=== PATIENT | female | born 1940 | race Caucasian/White ===

== ENCOUNTER → 2016-10-16 | Emergency (ER) | payer OTHER, MEDICARE ==
[~2016-10-16] MED LIST: LEVOFLOXACIN 250 MG TABLET (FP) ONE; LEVOFLOXACIN 250 MG TABLET (FP) PO ONE; SODIUM CHLORIDE 500 ML IV STA
[2016-10-16 20:56] VITALS: BP 133/55; PULSE 61; TEMP 98; BMI 29.2
--- NOTE | 2016-10-16 21:28 | PDOC ---
Attending Attestation - Resident Resident Name: Tea Geiger - ED Attending Attestation I have performed the following: I have examined & evaluated the patient, The case was reviewed & discussed with the resident, I agree w/resident's findings & plan - HPI HPI: 10/17/16 00:45 The patient is a 76 year old female, with a significant past medical history of diverticulitis, hypertension, paroxysmal AFIB/AFlutter, TIA, trigeminal neuralgia, who presents to the emergency department complaining of acute diarrhea beginning approx. four days ago. The patient reports the diarrhea has progressed worse over the past two days and describes the diarrhea as watery without blood. The patient states she is experiencing associated symptoms of abdominal pain, cramping and dehydration secondary to the diarrhea. The patient describes the abdominal pain and cramping as diffuse. The patient reports she ate an undercooked hamburger at a restaurant on 10/08/16. Patients son reports he experienced similar symptoms approx. one week ago. Patient denies nausea, vomiting, fever, chills. Patient denies melena, hematochezia. She denies recent chest pain or shortness of breath. She denies headache, dizziness or blurry vision.. Allergies: Vancomycin, Diclofenac, Gentamicin, Hydromorphone HCL, Penicillins, Sulfa (Sulfonamide Antibiotics) Past surgical history: Surgical Clips Abdomen, Appendectomy, Cholecystectomy, Removal Lipoma back area. Social history: Nonsmoker. Denies EtOH use and recreational drug use. Primary Care Physician: Dr. Cordoba - Physicial Exam PE: 10/17/16 00:46 GENERAL: Awake, alert, and fully oriented, in no acute distress HEAD: No signs of trauma EYES: PERRLA, EOMI, sclera anicteric, conjunctiva clear ENT: +Dry mucosa. Auricles normal inspection, hearing grossly normal, nares patent, oropharynx clear without exudates. NECK: Normal ROM, supple, no lymphadenopathy, JVD, or masses LUNGS: Breath sounds equal, clear to auscultation bilaterally. No wheezes, and no crackles HEART: Regular rate and rhythm, normal S1 and S2, no murmurs, rubs or gallops ABDOMEN: +Mild RLQ Tenderness. Soft, normoactive bowel sounds. No guarding, no rebound. No masses EXTREMITIES: Normal range of motion, no edema. No clubbing or cyanosis. No cords, erythema, or tenderness NEUROLOGICAL: Cranial nerves II through XII grossly intact. Normal speech, normal gait SKIN: Warm, Dry, normal turgor, no rashes or lesions noted. - Medical Decision Making 10/17/16 00:55 Documentation prepared by Bridger Lopez, acting as medical staffing coordinator for Coty Hardin MD. <Bridger Lopez - Last Filed: 10/17/16 00:55> - Resident Resident Name: Jerel Harvey - ED Attending Attestation I have performed the following: I have examined & evaluated the patient, The case was reviewed & discussed with the resident, I agree w/resident's findings & plan, Exceptions are as noted - Medical Decision Making Prelim reading of the CT was negative for colitis. Patient found to have a UTI, however. In light of multiple drug allergies, opted for levaquin, as it had the lowest likelihood of an interaction with other allergies. UCx pending. She has previously followed up with Dr. Garcia, will f/u outpatient. <Coty Hardin - Last Filed: 10/17/16 02:21>
--- NOTE | 2016-10-16 21:28 | PDOC ---
History of Present Illness - History of Present Illness Initial Comments: 10/16/16 22:04 76F w/ extensive medical history including diverticulitis, appendectomy, and cholecystectomy presenting with acute diarrhea. Pt reports that her diarrhea started over a week ago, was watery without blood, significantly malodorous, and was accompanied by cramping and abdominal pain. Over the last few days, these symptoms have worsened. She denies nausea, emesis, fevers, chills, recent antibiotic use, and recent travel. She states that her family member had similar symptoms before her but they resolved within a few days. She states that she ate a raw hamburger at a restaurant on 10/08/16. She took pepcid to improve her symptoms which did not help. She also endorses some dysuria and frequency a few days ago which she says has resolved. 10/16/16 22:38 <Jerel Harvey - Last Filed: 10/16/16 22:42> <Coty Hardin - Last Filed: 10/17/16 01:23> - General Chief Complaint: Pain Stated Complaint: LOWER ABD PAIN Time Seen by Provider: 10/16/16 21:21 Past History - Past Medical History Anemia: No Asthma: No Cancer: Yes Cardiac Disorders: Yes (PAROXYSMAL ATRIAL FIBRILLATION) CVA: Yes (SEVERAL TIA'S) COPD: Yes (BRONCHITIS,PNEUMONIA) CHF: No Dementia: No Diabetes: No GI Disorders: Yes (HIATAL HERNIA,REFLUX,DIVERTICULOSIS) Disorders: No HTN: Yes Hypercholesterolemia: Yes Liver Disease: No Suicide Attempt (Hx): No Seizures: No Thyroid Disease: Yes (DUNG THYROIDITIS) Comment:: 10/16/16 22:33 PMH: HTN, paroxysmal a-fib/flutter, TIA, cervical and lumbar stenosis, trigeminal neuralgia, osteoarthritis, dung's thyroiditis, diverticulitis, hiatal hernia PSH: appendectomy, cholecystectomy, hysterectomy, breast surgery for benign cysts meds: synthoid, atenolol, aspirin, pepcid Allergies: vancomycin, diclofenac, gentamicin, dilaudid, PCN, sulfa drugs, epinephrine, latex Social Hx: 60 pack year smoking hx, quit 30 years ago, denies alcohol and drugs - Surgical History Abdominal Surgery: Yes (SURGICAL CLIPS ABDOMEN) Appendectomy: Yes Cardiac Surgery: No Cholecystectomy: Yes Lung Surgery: No Neurologic Surgery: No Orthopedic Surgery: Yes (REMOVAL LIPOMA BACK AREA) - Immunization History Immunization Up to Date: No - Psycho/Social/Smoking Cessation Hx Anxiety: Yes Suicidal Ideation: No Smoking Status: Yes Smoking History: Never smoked Have you smoked in the past 12 months: No Number of Cigarettes Smoked Daily: 0 If you are a former smoker, when did you quit?: 1987 Information on smoking cessation initiated: No 'Breaking Loose' booklet given: 11/07/14 Hx Alcohol Use: No Drug/Substance Use Hx: No Substance Use Type: None Hx Substance Use Treatment: No <Jerel Harvey - Last Filed: 10/16/16 22:42> <Coty Hardin - Last Filed: 10/17/16 01:23> - Past Medical History Allergies/Adverse Reactions: Allergies Allergy/AdvReac Type Severity Reaction Status Date / Time vancomycin Allergy Severe anaphylaxis Verified 10/16/16 20:52 diclofenac [Diclofenac] Allergy Mild Hives Verified 10/16/16 20:52 gentamicin [Gentamicin] Allergy Mild Rash Verified 10/16/16 20:52 hydromorphone HCl Allergy Mild Hives Verified 10/16/16 20:52 [From Dilaudid] Penicillins Allergy Mild Rash Verified 10/16/16 20:52 Sulfa (Sulfonamide Allergy Verified 10/16/16 20:52 Antibiotics) Home Medications: Ambulatory Orders Aspirin Coated [Ecotrin -] 325 mg PO DAILY 01/04/12 Levothyroxine [Synthroid -] 50 mcg PO DAILY 01/04/12 Levothyroxine [Synthroid -] 75 mcg PO DAILY 01/04/12 Multivitamin [Multivitamins] 1 each PO DAILY 04/12/12 Atenolol [Tenormin -] 25 mg PO DAILY #0 04/13/12 Acetaminophen [Tylenol .Extra-Strength -] 1 tab PO PRN PRN 06/05/14 Famotidine [Pepcid] 20 mg PO PRN PRN 11/13/15 Docusate Sodium [Colace -] 100 mg PO BID #60 capsule 01/15/16 Pantoprazole Sodium [Protonix] 40 mg PO DAILY #30 tablet. 01/15/16 Sodium Chloride Nasal [place] [[place] Nasal [place] -] 1 spray PRN 01/15/16 Review of Systems - Review of Systems Comments:: 10/16/16 22:36 ENERAL: No fever, chills, night sweats, or weakness. HEAD, EYES, EARS, NOSE AND THROAT: No change in vision, ear pain, or sore throat CARDIOVASCULAR: No chest pain or palpitations RESPIRATORY: No cough, wheezing, or hemoptysis. GASTROINTESTINAL: No nausea, vomiting, + diarrhea, no constipation, or blood in the stool. GENITOURINARY: + dysuria, + frequency MUSCULOSKELETAL: No joint or muscle swelling or pain. SKIN: No rashes or pruritis ENDOCRINE: No increased thirst. No abnormal weight change NEUROLOGIC: No headache, dizziness, loss of consciousness, or change in strength /sensation. <Jerel Harvey - Last Filed: 10/16/16 22:42> *Physical Exam - Vital Signs Last Vital Signs Temp Pulse Resp BP Pulse Ox 98.0 F 61 20 133/55 98 10/16/16 20:52 10/16/16 20:52 10/16/16 20:52 10/16/16 20:52 10/16/16 20:52 - Physical Exam Comments: 10/16/16 22:37 GENERAL: Awake, alert, and fully oriented, in mild acute distress HEAD: normocephalic, atraumatic HEENT: PERRLA, EOMI NECK: Normal ROM, supple, no lymphadenopathy, JVD, or masses HEART: irregularly irregular, no murmurs, rubs or gallops, peripheral pulses normal and equal bilaterally. LUNGS: CTAB, no wheezing, no rales ABDOMEN: Soft, nontender, nondistended, normoactive bowel sounds. No guarding, no rebound. No masses EXTREMITIES: Normal range of motion, 1+ pitting edema b/l SKIN: Warm, dry, no rashes or lesions noted. NEUROLOGICAL: Cranial nerves II through XII grossly intact. Normal speech, normal gait, no focal sensorimotor deficits 10/16/16 22:42 10/16/16 22:43 <Jerel Harvey - Last Filed: 10/16/16 22:42> - Vital Signs Last Vital Signs Temp Pulse Resp BP Pulse Ox 98.0 F 61 20 133/55 98 10/16/16 20:52 10/16/16 20:52 10/16/16 20:52 10/16/16 20:52 10/16/16 20:52 <Coty Hardin - Last Filed: 10/17/16 01:23> ED Treatment Course - LABORATORY CBC & Chemistry Diagram: 10/16/16 22:00 10/16/16 22:00 <Jerel Harvey - Last Filed: 10/16/16 22:42> - LABORATORY CBC & Chemistry Diagram: 10/16/16 22:00 10/16/16 22:00 - ADDITIONAL ORDERS Additional order review: Laboratory Results 10/16/16 10/16/16 22:33 22:00 Sodium 142 Potassium 3.9 Chloride 108 H Carbon Dioxide 27 Anion Gap 7 L BUN 21 H D Creatinine 0.6 Creat Clearance w eGFR > 60 Random Glucose 90 Calcium 8.7 Total Bilirubin 0.3 D AST 21 D ALT 26 Alkaline Phosphatase 69 Total Protein 6.4 Albumin 3.5 Urine Color Brown Urine Appearance Clear Urine pH 6.0 Urine Protein Trace H Urine Glucose (UA) Negative Urine Ketones Negative Urine Blood 2+ H Urine Nitrite Positive Urine Bilirubin Negative Urine Urobilinogen 0.2 Ur Leukocyte Esterase 3+ H D Urine RBC 8 Urine WBC 1093 Ur Epithelial Cells Rare Urine Bacteria Rare Urine Mucus Rare 10/16/16 22:00 RBC 4.39 MCV 89.4 MCHC 33.8 RDW 15.1 MPV 10.5 Neutrophils % 52.6 Lymphocytes % 32.4 D Monocytes % 11.9 H Eosinophils % 2.2 Basophils % 0.9 - Medications Given in the ED: ED Medications Discontinued Medications Generic Name Dose Route Start Last Admin Trade Name Freq PRN Reason Stop Dose Admin Sodium Chloride 500 mls @ 500 mls/hr 10/16/16 21:57 10/16/16 22:34 Normal Saline - IV 10/16/16 22:56 500 mls/hr ASDIR STA Administration <Coty Hardin - Last Filed: 10/17/16 01:23> Medical Decision Making - Medical Decision Making 10/16/16 22:38 76F w/ extensive medical history including diverticulitis, appendectomy, and cholecystectomy presenting with acute watery, malodorous diarrhea. Differential includes c. diff colitis, diverticulitis, UTI. -CBC: -CMP: -UA -stool cx: -stool c. diff toxin -stool wbc -stool O&P: -CT abdomen/pelvis: Gave 1/2L bolus of NS. <Jerel Harvey - Last Filed: 10/16/16 22:42> *DC/Admit/Observation/Transfer <Jerel Harvey - Last Filed: 10/16/16 22:42> - Discharge Dispostion Admit: No <Coty Hardin - Last Filed: 10/17/16 01:23> Diagnosis at time of Disposition: UTI (urinary tract infection) Qualifiers: Urinary tract infection type: acute cystitis Hematuria presence: without hematuria Qualified Code(s): N30.00 - Acute cystitis without hematuria - Discharge Dispostion Disposition: HOME Condition at time of disposition: Stable - Referrals Referrals: Ray Cordoba MD [Primary Care Provider] -
[2016-10-16 22:07] LABS: BASOPHIL 0.9 % (0-2.0); EOSINOPHIL 2.2 % (0-4.5); MCH 30.2 pg (25.7-33.7); MCHC 33.8 g/dl (32.0-36.0); MEAN CELL VOLUME 89.4 fl (80-96); MEAN PLT VOLUME 10.5 fl (7.5-11.1); NEUTROPHILS 52.6 % (42.8-82.8); PLATELET COUNT 187 K/MM3 (134-434); RDW 15.1 % (11.6-15.6); WHITE BLOOD COUNT 7.1 K/mm3 (4.0-10.0)
[2016-10-16 22:36] LABS: URINE APPEARANCE CLEAR; URINE BILIRUBIN NEGATIVE (NEGATIVE); URINE BLOOD 2+ (NEGATIVE); URINE COLOR BROWN; URINE GLUCOSE (UA) NEGATIVE (NEGATIVE); URINE KETONE NEGATIVE (NEGATIVE); URINE PROTEIN TRACE (NEGATIVE); URINE UROBILINOGEN 0.2 mg/dL (0.2-1.0)
[2016-10-16 22:39] LABS: ALBUMIN 3.5 g/dl (3.4-5.0); ALK PHOS 69 U/L (45-117); ANION GAP 7 (8-16); BILIRUBIN,TOTAL 0.3 mg/dL (0.2-1.0); CALCIUM 8.7 mg/dL (8.5-10.1); CO2 27 mmol/L (21-32); CREATININE 0.6 mg/dL (0.55-1.02); GLUCOSE,RANDOM 90 mg/dL (74-106); SGPT/ALT 26 U/L (12-78); TOT PROT 6.4 g/dl (6.4-8.2)
[2016-10-16 22:42] LABS: SGOT/AST 21 U/L (15-37)
[2016-10-16 22:49] LABS: URINE LEUK ESTERASE 3+ (NEGATIVE); URINE NITRITE POSITIVE (NEGATIVE)
[2016-10-16 22:50] LABS: URINE BACTERIA RARE /hpf (NONE SEEN); URINE MUCUS RARE; URINE RBC 8 /hpf (0-3); URINE WBC 1093 /hpf (3-5)
== END | disposition home or self-care (01) ==
LOC: JER 20:31
PROC: 3E0337Z Introduction of Electrolytic and Water Balance Substance into Peripheral Vein, Percutaneous Approach (ICD-10-PCS; principal; 2016-10-16)
DX: N30.00 Acute cystitis without hematuria (principal); I10 Essential (primary) hypertension; E06.3 Autoimmune thyroiditis; E78.00 Pure hypercholesterolemia, unspecified; J44.9 Chronic obstructive pulmonary disease, unspecified; Z86.73 Personal history of transient ischemic attack (TIA), and cerebral infarction without residual deficits; I48.91 Unspecified atrial fibrillation; K21.9 Gastro-esophageal reflux disease without esophagitis
CPT/HCPCS: 36415; 74176-TC; 80053; 81003; 81015; 85025; 96360; 99283-25

== ENCOUNTER 2016-10-17 11:57 | Emergency (ER) | payer OTHER, MEDICARE ==
[2016-10-17 12:03] VITALS: TEMP 98
[2016-10-17 12:57] LABS: BASOPHIL 0.8 % (0-2.0); EOSINOPHIL 1.3 % (0-4.5); MCH 29.6 pg (25.7-33.7); MCHC 32.8 g/dl (32.0-36.0); MEAN CELL VOLUME 90.1 fl (80-96); MEAN PLT VOLUME 10.3 fl (7.5-11.1); NEUTROPHILS 60.6 % (42.8-82.8); PLATELET COUNT 208 K/MM3 (134-434)
[2016-10-17 13:06] LABS: URINE APPEARANCE CLEAR; URINE BILIRUBIN NEGATIVE (NEGATIVE); URINE BLOOD NEGATIVE (NEGATIVE); URINE COLOR LT. YELLOW; URINE GLUCOSE (UA) NEGATIVE (NEGATIVE); URINE KETONE NEGATIVE (NEGATIVE); URINE NITRITE NEGATIVE (NEGATIVE); URINE PROTEIN NEGATIVE (NEGATIVE); URINE UROBILINOGEN 0.2 mg/dL (0.2-1.0)
[2016-10-17 13:19] LABS: URINE LEUK ESTERASE 1+ (NEGATIVE)
--- NOTE | 2016-10-17 13:21 | PDOC ---
History of Present Illness - General Chief Complaint: Urinary Problem Stated Complaint: ALLERGIC REACTION Time Seen by Provider: 10/17/16 12:34 History Source: Patient Exam Limitations: No Limitations - History of Present Illness Initial Comments: 10/17/16 13:20 CHIEF COMPLAINT: UTI HISTORY OF PRESENT ILLNESS: This is a 76 year old female with a history of bladder prolapse and frequent UTIs, paroxysmal atrial fibrillation (not on AC), HTN, GERD, diverticulitis, appendectomy, and cholecystectomy seen last night in the ED for diarrhea and diagnosed with UTI. She has multiple drug allergies and was started on Levaquin. She returns today with abdominal cramping and lightheadedness, which she thinks may be attributable to Levaquin. She has mild left flank pain. She denies fevers/chills, nausea/vomiting, or any other symptoms. V/s on arrival are unremarkable. PCP is Dr. Cordoba. REVIEW OF SYSTEMS: GENERAL/CONSTITUTIONAL: No fever or chills. No weakness. No weight change. HEAD, EYES, EARS, NOSE AND THROAT: No change in vision. No ear pain or discharge. No sore throat. CARDIOVASCULAR: No chest pain or palpitations. RESPIRATORY: No cough, wheezing, or shortness of breath. GASTROINTESTINAL: No nausea, vomiting, diarrhea or constipation. GENITOURINARY: No dysuria, frequency, or change in urination. MUSCULOSKELETAL: No joint or muscle swelling or pain. No neck or back pain. SKIN: No rash or easy bruising. NEUROLOGIC: No headache, vertigo, loss of consciousness, or loss of sensation. PSYCHIATRIC: No depression or anxiety. ENDOCRINE: No increased thirst. No abnormal weight change. HEMATOLOGIC/LYMPHATIC: No anemia, easy bleeding, or history of blood clots. ALLERGIC/IMMUNOLOGIC: No hives or skin allergy. No latex allergy. PHYSICAL EXAM: GENERAL: The patient is awake, alert, and fully oriented, in no acute distress. HEAD: Normal with no signs of trauma. ENT: Pupils equal, round and reactive to light, extraocular movements intact, sclera anicteric, conjunctiva clear. Neck supple. LUNGS: Clear to auscultation bilaterally. Normal excursion. No respiratory distress or use of accessory muscles. CV: RRR, S1/S2, no MRG. Cap refill < 2 sec. ABDOMEN: Soft, non-distended, non-tender. EXTREMITIES: Normal range of motion, no edema. NEUROLOGICAL: Normal speech, normal gait. CN II-XII grossly intact. PSYCH: Normal mood, normal affect. SKIN: Warm, dry, normal turgor, no rashes or lesions noted. Past History - Past Medical History Allergies/Adverse Reactions: Allergies Allergy/AdvReac Type Severity Reaction Status Date / Time vancomycin Allergy Severe anaphylaxis Verified 10/17/16 12:04 diclofenac [Diclofenac] Allergy Mild Hives Verified 10/17/16 12:04 gentamicin [Gentamicin] Allergy Mild Rash Verified 10/17/16 12:04 hydromorphone HCl Allergy Mild Hives Verified 10/17/16 12:04 [From Dilaudid] Penicillins Allergy Mild Rash Verified 10/17/16 12:04 cephalexin monohydrate Allergy Verified 10/17/16 15:21 [From Keflex] nitrofurantoin Allergy Verified 10/17/16 15:21 [From Macrobid] nitrofurantoin Allergy Verified 10/17/16 15:21 macrocrystalline [From Macrobid] Sulfa (Sulfonamide Allergy Verified 10/17/16 12:04 Antibiotics) Home Medications: Ambulatory Orders Aspirin Coated [Ecotrin -] 325 mg PO DAILY 01/04/12 Levothyroxine [Synthroid -] 50 mcg PO SUTHFRSA 01/04/12 Levothyroxine [Synthroid -] 75 mcg PO MOTUWE 01/04/12 Multivitamin [Multivitamins] 1 each PO DAILY 04/12/12 Atenolol [Tenormin -] 25 mg PO DAILY #0 04/13/12 Acetaminophen [Tylenol .Extra-Strength -] 1 tab PO PRN PRN 06/05/14 Famotidine [Pepcid] 20 mg PO PRN PRN 11/13/15 Sodium Chloride Nasal [place] [[place] Nasal [place] -] 1 spray SPIN DAILY PRN 01/15/16 Levofloxacin [Levaquin -] 250 mg PO DAILY #2 tablet 10/17/16 Anemia: No Asthma: No Cancer: Yes Cardiac Disorders: Yes (PAROXYSMAL ATRIAL FIBRILLATION) CVA: Yes (SEVERAL TIA'S) COPD: Yes (BRONCHITIS,PNEUMONIA) CHF: No Dementia: No Diabetes: No GI Disorders: Yes (HIATAL HERNIA,REFLUX,DIVERTICULOSIS) Disorders: No HTN: Yes Hypercholesterolemia: Yes Liver Disease: No Suicide Attempt (Hx): No Seizures: No Thyroid Disease: Yes (DOROTEO THYROIDITIS) - Surgical History Abdominal Surgery: Yes (SURGICAL CLIPS ABDOMEN) Appendectomy: Yes Cardiac Surgery: No Cholecystectomy: Yes Lung Surgery: No Neurologic Surgery: No Orthopedic Surgery: Yes (REMOVAL LIPOMA BACK AREA) - Immunization History Immunization Up to Date: No - Psycho/Social/Smoking Cessation Hx Anxiety: Yes Suicidal Ideation: No Smoking Status: Yes Smoking History: Former smoker Have you smoked in the past 12 months: No Number of Cigarettes Smoked Daily: 0 If you are a former smoker, when did you quit?: 1987 Information on smoking cessation initiated: No 'Breaking Loose' booklet given: 11/07/14 Hx Alcohol Use: No Drug/Substance Use Hx: No Substance Use Type: None Hx Substance Use Treatment: No *Physical Exam - Vital Signs Last Vital Signs Temp Pulse Resp BP Pulse Ox 98.0 F 56 L 16 123/74 100 10/17/16 12:00 10/17/16 12:00 10/17/16 12:00 10/17/16 12:00 10/17/16 12:00 Heart Score/ECG Review - ECG Intrepretation Comment:: 10/17/16 15:06 Sinus rhythm at 67 bpm with PACs ED Treatment Course - LABORATORY CBC & Chemistry Diagram: 10/17/16 12:48 10/17/16 12:48 - ADDITIONAL ORDERS Additional order review: Laboratory Results 10/17/16 12:48 Urine Color Lt. yellow Urine Appearance Clear Urine pH 7.0 Urine Protein Negative Urine Glucose (UA) Negative Urine Ketones Negative Urine Blood Negative Urine Nitrite Negative Urine Bilirubin Negative Urine Urobilinogen 0.2 Ur Leukocyte Esterase 1+ H D 10/17/16 12:48 RBC 4.82 MCV 90.1 MCHC 32.8 RDW 15.0 MPV 10.3 Neutrophils % 60.6 Lymphocytes % 25.8 D Monocytes % 11.5 H Eosinophils % 1.3 Basophils % 0.8 - RADIOLOGY Radiology Studies Ordered: Category Date Time Status CHEST X-RAY PORTABLE* [RAD] Stat Radiology 10/17/16 12:35 Taken Medical Decision Making - Medical Decision Making 10/17/16 15:20 A/P: 76 year old female with UTI and many drug allergies. Review of record indicates administration of multiple doses of Levaquin during an admission for diverticulitis; doubt true allergy. Dose of Levaquin given IVPB here without reaction. Culture from visit to urologist on Monday requested and faxed - E coli (no sensitivities reported). -Repeat urine culture -Basic labs - normal WBC, creatinine -Discussed with PCP Dr. Cordoba- recommends discharge with office followup -Return precautions reviewed with the patient *DC/Admit/Observation/Transfer Diagnosis at time of Disposition: UTI (urinary tract infection) Qualifiers: Urinary tract infection type: acute cystitis Hematuria presence: without hematuria Qualified Code(s): N30.00 - Acute cystitis without hematuria - Discharge Dispostion Admit: No - Prescriptions Prescriptions: Levofloxacin [Levaquin -] 250 mg PO DAILY #2 tablet - Referrals Referrals: Ray Cordoba MD [Primary Care Provider] - 3 days - Patient Instructions Printed Discharge Instructions: DI for Urinary Tract Infection (UTI)
[2016-10-17 13:22] LABS: ALBUMIN 3.7 g/dl (3.4-5.0); ANION GAP 9 (8-16); CALCIUM 9.2 mg/dL (8.5-10.1); CO2 24 mmol/L (21-32); GLUCOSE,RANDOM 89 mg/dL (74-106)
[2016-10-17 13:27] LABS: URINE RBC <1 /hpf (0-3); URINE WBC 21 /hpf (3-5)
[2016-10-17] MEDS ORDERED: LEVOFLOXACIN 500 MG IVPB 100 ML IVPB ONE ×2 (14:14→14:33)
[2016-10-17 14:26] LABS: ALK PHOS 72 U/L (45-117); BILIRUBIN,TOTAL 0.7 mg/dL (0.2-1.0); CREATININE 0.6 mg/dL (0.55-1.02); SGPT/ALT 32 U/L (12-78)
[2016-10-17 14:31] LABS: SGOT/AST 38 U/L (15-37)
[2016-10-17 15:37] VITALS: BP 122/63; PULSE 59
--- NOTE | 2016-10-19 16:48 | EKG ---
Test Reason : Blood Pressure : / mmHG Vent. Rate : 067 BPM Atrial Rate : 067 BPM P-R Int : 000 ms QRS Dur : 084 ms QT Int : 414 ms P-R-T Axes : 031 -03 002 degrees QTc Int : 437 ms SINUS RHYTHM WITH PREMATURE ATRIAL COMPLEXES IN A PATTERN OF BIGEMINY OTHERWISE NORMAL ECG WHEN COMPARED WITH ECG OF 14-JAN-2016 11:05, PREMATURE ATRIAL COMPLEXES ARE NOW PRESENT Confirmed by DARIEL PINEDA MD ([id number]) on 10/19/2016 4:47:51 PM Referred By: Confirmed By:DARIEL PINEDA MD
== END 2016-10-17 15:37 | disposition home or self-care (01) ==
LOC: JER 11:57
DX: N30.00 Acute cystitis without hematuria (principal); I48.91 Unspecified atrial fibrillation; I10 Essential (primary) hypertension; K21.9 Gastro-esophageal reflux disease without esophagitis
CPT/HCPCS: 36415; 71010-TC; 80053; 81003; 81015; 85025; 87086; 93005; 93010; 99283-25

== ENCOUNTER 2016-10-25 20:33 | Emergency (ER) | payer OTHER, MEDICARE ==
[2016-10-25 21:08] VITALS: BP 133/72; PULSE 56; TEMP 97.9; BMI 28.3
[2016-10-25] MEDS ORDERED: SODIUM CHLORIDE 500 ML IV STA (22:50)
[2016-10-26 00:23] LABS: BASOPHIL 0.5 % (0-2.0); EOSINOPHIL 1.1 % (0-4.5); MCH 29.3 pg (25.7-33.7); MCHC 32.4 g/dl (32.0-36.0); MEAN CELL VOLUME 90.3 fl (80-96); MEAN PLT VOLUME 10.5 fl (7.5-11.1); NEUTROPHILS 66.9 % (42.8-82.8); PLATELET COUNT 204 K/MM3 (134-434); RDW 15.1 % (11.6-15.6); WHITE BLOOD COUNT 12.6 K/mm3 (4.0-10.0)
[2016-10-26 00:45] LABS: ALBUMIN 3.9 g/dl (3.4-5.0); ALK PHOS 71 U/L (45-117); ANION GAP 12 (8-16); BILIRUBIN,TOTAL 0.6 mg/dL (0.2-1.0); CO2 22 mmol/L (21-32); CREATININE 0.6 mg/dL (0.55-1.02); GLUCOSE,RANDOM 85 mg/dL (74-106); SGPT/ALT 27 U/L (12-78); TOT PROT 6.9 g/dl (6.4-8.2)
[2016-10-26 00:53] LABS: SGOT/AST 36 U/L (15-37)
== END 2016-10-26 04:00 | disposition home or self-care (01) ==
LOC: JER 20:33
PROC: 3E0337Z Introduction of Electrolytic and Water Balance Substance into Peripheral Vein, Percutaneous Approach (ICD-10-PCS; principal; 2016-10-25)
DX: K57.90 Diverticulosis of intestine, part unspecified, without perforation or abscess without bleeding (principal); I48.0 Paroxysmal atrial fibrillation; J44.9 Chronic obstructive pulmonary disease, unspecified; I10 Essential (primary) hypertension; E78.00 Pure hypercholesterolemia, unspecified; Z86.73 Personal history of transient ischemic attack (TIA), and cerebral infarction without residual deficits
CPT/HCPCS: 36415; 74177-TC; 80053; 85025; 99282-25

== ENCOUNTER 2018-08-07 14:15 | Emergency (ER) | payer OTHER, MEDICARE ==
[2018-08-07 14:38] VITALS: TEMP 98.2; BMI 28.3
--- NOTE | 2018-08-07 14:41 | PDOC ---
Rapid Medical Evaluation Chief Complaint: Pain, Acute Time Seen by Provider: 08/07/18 14:39 Medical Evaluation: Allergies Allergy/AdvReac Type Severity Reaction Status Date / Time vancomycin Allergy Severe anaphylaxis Verified 08/07/18 14:36 diclofenac [Diclofenac] Allergy Mild Hives Verified 08/07/18 14:36 gentamicin [Gentamicin] Allergy Mild Rash Verified 08/07/18 14:36 hydromorphone HCl Allergy Mild Hives Verified 08/07/18 14:36 [From Dilaudid] Penicillins Allergy Mild Rash Verified 08/07/18 14:36 cephalexin monohydrate Allergy Verified 08/07/18 14:36 [From Keflex] nitrofurantoin Allergy Verified 08/07/18 14:36 [From Macrobid] nitrofurantoin Allergy Verified 08/07/18 14:36 macrocrystalline [From Macrobid] Sulfa (Sulfonamide Allergy Verified 08/07/18 14:36 Antibiotics) Vital Signs Temp Pulse Resp BP Pulse Ox 98.2 F 68 18 129/76 98 08/07/18 14:36 08/07/18 14:36 08/07/18 14:36 08/07/18 14:36 08/07/18 14:36 08/07/18 14:40 The patient c/o: gen abd ain, nausea, constipation mixed w/ diarrhea, hx diverticulitis, no fever Patient on brief exam: mild gen abd tenderness, vss Patient ordered for: labs, urine, will allow provider to decide imaging Patient to proceed to the ED Discharge Disposition - Diagnosis Abdominal pain - Referrals - Patient Instructions - Post Discharge Activity
--- NOTE | 2018-08-07 14:51 | PDOC ---
History of Present Illness - General Chief Complaint: Pain, Acute Stated Complaint: STOMACH PAIN\\NAUSEA\\LIGHTHEADED Time Seen by Provider: 08/07/18 14:39 - History of Present Illness Initial Comments: 08/07/18 14:49 The patient is an 78 year old female with a PMH of diverticulitis, Paroxysmal AFib (not on A/C), Hypothyroidism, GERD presents to our ED c/o 2 week h/o abdominal pain. Pain is "twisting" intermittent, worse post prandial, associated with nausea not vomiting. Last BM was earlier today prior to presentation and was soft. States she had some diarrhea initially when the pain started and then had 2-3 days of constipation. Tolerating PO intake, but notes limited appetite 2/2 to her symptoms. Has previously scheduled appointment with GI in two weeks. Allergy: Dilaudid, Vancoymcin, Gentamicin Surgical: appendectomy, cholecystectomy, hysterectomy PMD: Dr. [place] Machine Wood Sander: Dr. Tobin Past History - Past Medical History Allergies/Adverse Reactions: Allergies Allergy/AdvReac Type Severity Reaction Status Date / Time vancomycin Allergy Severe anaphylaxis Verified 08/07/18 14:36 diclofenac [Diclofenac] Allergy Mild Hives Verified 08/07/18 14:36 gentamicin [Gentamicin] Allergy Mild Rash Verified 08/07/18 14:36 hydromorphone HCl Allergy Mild Hives Verified 08/07/18 14:36 [From Dilaudid] Penicillins Allergy Mild Rash Verified 08/07/18 14:36 cephalexin monohydrate Allergy Verified 08/07/18 14:36 [From Keflex] nitrofurantoin Allergy Verified 08/07/18 14:36 [From Macrobid] nitrofurantoin Allergy Verified 08/07/18 14:36 macrocrystalline [From Macrobid] Sulfa (Sulfonamide Allergy Verified 08/07/18 14:36 Antibiotics) Home Medications: Ambulatory Orders Aspirin Coated [Ecotrin -] 325 mg PO DAILY 01/04/12 Levothyroxine [Synthroid -] 50 mcg PO SUTHFRSA 01/04/12 Levothyroxine [Synthroid -] 75 mcg PO MOTUWE 01/04/12 Multivitamin [Multivitamins] 1 each PO DAILY 04/12/12 Atenolol [Tenormin -] 25 mg PO DAILY #0 04/13/12 Acetaminophen [Tylenol .Extra-Strength -] 1 tab PO PRN PRN 06/05/14 Famotidine [Pepcid] 20 mg PO PRN PRN 11/13/15 Sodium Chloride Nasal [place] [[place] Nasal [place] -] 1 spray SPIN DAILY PRN 01/15/16 levoFLOXacin [Levaquin -] 250 mg PO DAILY #2 tablet 10/17/16 Anemia: No Asthma: No Cancer: Yes Cardiac Disorders: Yes (PAROXYSMAL ATRIAL FIBRILLATION) CVA: Yes (SEVERAL TIA'S) COPD: Yes (BRONCHITIS,PNEUMONIA) CHF: No Dementia: No Diabetes: No GI Disorders: Yes (HIATAL HERNIA,REFLUX,DIVERTICULOSIS) Disorders: No HTN: Yes Hypercholesterolemia: Yes Liver Disease: No Seizures: No Thyroid Disease: Yes (DOROTEO THYROIDITIS) - Surgical History Abdominal Surgery: Yes (SURGICAL CLIPS ABDOMEN) Appendectomy: Yes Cardiac Surgery: No Cholecystectomy: Yes Lung Surgery: No Neurologic Surgery: No Orthopedic Surgery: Yes (REMOVAL LIPOMA BACK AREA) - Immunization History Immunization Up to Date: No - Suicide/Smoking/Psychosocial Hx Smoking Status: Yes Smoking History: Former smoker Have you smoked in the past 12 months: No Number of Cigarettes Smoked Daily: 0 If you are a former smoker, when did you quit?: 1987 Information on smoking cessation initiated: No 'Breaking Loose' booklet given: 11/07/14 Hx Alcohol Use: No Drug/Substance Use Hx: No Substance Use Type: None Hx Substance Use Treatment: No Review of Systems - Review of Systems Constitutional: No: Chills, Fever HEENTM: No: Blurred Vision, Recent change in vision Respiratory: No: Cough, Shortness of Breath Cardiac (ROS): No: Chest Pain, Lightheadedness, Palpitations *Physical Exam - Vital Signs Last Vital Signs Temp Pulse Resp BP Pulse Ox 98.2 F 68 18 129/76 98 08/07/18 14:36 08/07/18 14:36 08/07/18 14:36 08/07/18 14:36 08/07/18 14:36 - Physical Exam General Appearance: Yes: Nourished, Appropriately Dressed HEENT: positive: Normal Voice, Hearing Grossly Normal Neck: positive: Trachea midline, Supple Respiratory/Chest: positive: Lungs Clear, Normal Breath Sounds Cardiovascular: positive: Regular Rate, S1, S2 Vascular Pulses: Dorsalis-Pedis (R): 2+, Doralis-Pedis (L): 2+ Gastrointestinal/Abdominal: positive: Other (soft, (+) bowel sounds, mild LLQ TTP w/ some guarding, no hernia) Musculoskeletal: negative: CVA Tenderness (R), CVA Tenderness (L) Extremity: positive: Normal Capillary Refill, Normal Inspection Integumentary: positive: Normal Color, Dry, Warm Neurologic: positive: bench assembler battery II-XII NML intact, Fully Oriented, Alert ED Treatment Course - LABORATORY CBC & Chemistry Diagram: 08/07/18 15:28 08/07/18 15:28 Medical Decision Making - Medical Decision Making 08/07/18 15:45 78 year old female with 2 week h/o abdominal pain. VS unremarkable. PE shows tender abdomen with peritoneal signs. Frontal diagnosis: colitis, diverticulitis, gastritis, gastroenteritis, cystitis/pyelonephritis pancreatitis. Less likely acute abdomen including mesenteric ischemia given patient's clinical presentation and physical exam. PLAN: CTAP, basic labs, lipase. IV hydration 08/07/18 16:07 No leukocytosis CMP unremarkable UA clean 08/07/18 19:59 CTAP shows no diverticulitis, no colitis, Patient reassessed, son @ bedside, symptomatically improved, ambulatory. Will discharge home with instruction to keep previously scheduled GI appointment , return precautions. I discussed the physical exam findings, ancillary test results and final diagnoses with the patient. I answered all of the patient's questions. The patient was satisfied with the care received and felt comfortable with the discharge plan and treatment plan. The patient will return to the Emergency Department with any new, persistent or worsening symptoms. *DC/Admit/Observation/Transfer Diagnosis at time of Disposition: Abdominal pain - Discharge Dispostion Disposition: HOME Condition at time of disposition: Good Decision to Admit order: No - Referrals - Patient Instructions Printed Discharge Instructions: [place] Diet, DI for Gastritis Additional Instructions: You were evaluated today for your abdominal pain. All of your labs, a test of your urine and your cat scan showed no concerning findings. At this time you are safe for discharge home. We are providing you with copies of your labs and cat scans. Please take these reports to your follow-up appointment with your polarity tester. Your care is not complete until you are evaluated by your polarity tester. Return to the Emergency Department for any new/worsening/concerning symptoms. - Post Discharge Activity
[2018-08-07] MEDS ORDERED: SODIUM CHLORIDE 0.9% 500 ML INFUS.BAG IV ONE (15:18)
[2018-08-07 15:47] LABS: EOS % 1.3 % (0-4.5); HEMATOCRIT 44.2 % (32.4-45.2); HEMOGLOBIN 14.7 GM/dL (10.7-15.3); LYMPH % 25.6 % (8-40); MCH 30.9 pg (25.7-33.7); MCHC 33.3 g/dl (32.0-36.0); MEAN CELL VOLUME 92.9 fl (80-96); MEAN PLT VOLUME 10.9 fl (7.5-11.1); MONO % 10.2 % (3.8-10.2); NEUT % 61.9 % (42.8-82.8); PLATELET COUNT 190 K/MM3 (134-434); RBC 4.76 M/mm3 (3.60-5.2); RDW 14.2 % (11.6-15.6)
[2018-08-07] MEDS ORDERED: ACETAMINOPHEN 1000 MG/100 ML VIAL (NON FORMULARY) IVPB ONE (15:47)
--- NOTE | 2018-08-07 16:07 | PDOC ---
Documentation entered by Liliam Todd SCRIBE, acting as scribe for Karthik Walker MD. Karthik Walker MD: This documentation has been prepared by the Peyton edmondson Adrianna, SCRIBE, under my direction and personally reviewed by me in its entirety. I confirm that the documentation accurately reflects all work, treatment, procedures, and medical decision making performed by me. Attending Attestation - Resident Resident Name: Tiarra Portillo - ED Attending Attestation I have performed the following: I have examined & evaluated the patient, The case was reviewed & discussed with the resident, I agree w/resident's findings & plan - HPI HPI: 08/07/18 16:05 78y/o F h/o diverticulitis p/w 2 weeks of worsening lower abd pain. Began with 2 -3 days loose nonbloody stool followed by constant lower abd discomfort, now pain. no f/c, no urinary complaints. History of appendectomy and cholecystectomy and hysterectomy - Physicial Exam PE: 08/07/18 16:06 Vital signs stable Well-appearing elderly woman, conversant and pleasant No jaundice or pallor, slightly dry mucosa Abdomen is soft/nondistended. Tender with some guarding in the left lower quadrant, no CVA tenderness, no palpable hernias or lymphadenopathy - Medical Decision Making 08/07/18 16:06 78-year-old female with 2 weeks of progressive left lower quadrant pain and GI complaints, localized left lower quadrant/left pelvic peritoneal findings which could be consistent with acute infectious/inflammatory process such as colitis/ diverticulitis, rule out UTI. Labs, urinalysis CT of the abdomen and pelvis IV fluids Reassess
[2018-08-07] MEDS ORDERED: ACETAMINOPHEN INJECTION 100 ML IVPB ONE (16:26)
[2018-08-07 17:34] LABS: EPI CELLS 0.5 /HPF (0-5/HPF); HYALINE CASTS 0 /lpf (0-8); URINE APPEARANCE CLOUDY; URINE BILIRUBIN NEGATIVE (NEGATIVE); URINE COLOR YELLOW; URINE GLUCOSE (UA) NEGATIVE (NEGATIVE); URINE KETONE TRACE (NEGATIVE); URINE LEUK ESTERASE TRACE (NEGATIVE); URINE NITRITE NEGATIVE (NEGATIVE); URINE PROTEIN NEGATIVE (NEGATIVE); URINE RBC 1 /hpf (0-4); URINE UROBILINOGEN 0.2 mg/dL (0.2-1.0); URINE WBC 7 /hpf (0-5)
[2018-08-07 17:39] LABS: BILIRUBIN,TOTAL 0.5 mg/dL (0.2-1); CALCIUM 9.7 mg/dL (8.5-10.1); CREATININE 0.6 mg/dL (0.55-1.3); POTASSIUM 4.2 mmol/L (3.5-5.1)
--- NOTE | 2018-08-07 20:38 | PDOC ---
*Physical Exam - Vital Signs Last Vital Signs Temp Pulse Resp BP Pulse Ox 98.2 F 68 18 129/76 98 08/07/18 14:36 08/07/18 14:36 08/07/18 14:36 08/07/18 14:36 08/07/18 14:36 ED Treatment Course - LABORATORY CBC & Chemistry Diagram: 08/07/18 15:28 08/07/18 15:28 - ADDITIONAL ORDERS Additional order review: Laboratory Results 08/07/18 08/07/18 17:00 15:28 Sodium 141 Potassium 4.2 Chloride 108 H Carbon Dioxide 23 Anion Gap 10 BUN 18 Creatinine 0.6 Est GFR (CKD-EPI)AfAm 99.77 Est GFR (CKD-EPI)NonAf 86.09 Random Glucose 77 Calcium 9.7 Total Bilirubin 0.5 AST 28 ALT 32 Alkaline Phosphatase 79 Total Protein 7.0 Albumin 4.0 Lipase 101 Urine Color Yellow Urine Appearance Cloudy Urine pH 5.0 D Ur Specific [place] 1.013 Urine Protein Negative Urine Glucose (UA) Negative Urine Ketones Trace H Urine Blood Negative Urine Nitrite Negative Urine Bilirubin Negative Urine Urobilinogen 0.2 Ur Leukocyte Esterase Trace Urine WBC (Auto) 7 Urine RBC (Auto) 1 Urine Casts (Auto) 0 U Epithel Cells (Auto) 0.5 Urine Bacteria (Auto) 9.0 08/07/18 15:28 RBC 4.76 MCV 92.9 MCHC 33.3 RDW 14.2 MPV 10.9 Neutrophils % 61.9 Lymphocytes % 25.6 D Monocytes % 10.2 Eosinophils % 1.3 Basophils % 1.0 - RADIOLOGY Radiology Studies Ordered: Category Date Time Status ABDOMEN & PELVIS CT WITH CONTR [CT] Stat CT Scan 08/07/18 15:18 Completed - Medications Given in the ED: ED Medications Discontinued Medications Generic Name Dose Route Start Last Admin Trade Name Freq PRN Reason Stop Dose Admin Acetaminophen 1,000 mg 08/07/18 15:47 08/07/18 16:34 Ofirmev Injection - IVPB 08/07/18 15:48 1,000 mg ONCE ONE Administration Sodium Chloride 1,000 ml 08/07/18 15:18 08/07/18 15:43 Normal Saline - IV 08/07/18 15:19 1,000 ml ONCE ONE Administration *DC/Admit/Observation/Transfer Diagnosis at time of Disposition: Abdominal pain - Discharge Dispostion Disposition: HOME Condition at time of disposition: Good - Referrals - Patient Instructions Printed Discharge Instructions: [place] Diet, DI for Gastritis Additional Instructions: You were evaluated today for your abdominal pain. All of your labs, a test of your urine and your cat scan showed no concerning findings. At this time you are safe for discharge home. We are providing you with copies of your labs and cat scans. Please take these reports to your follow-up appointment with your professional shopper. Your care is not complete until you are evaluated by your professional shopper. Return to the Emergency Department for any new/worsening/concerning symptoms. - Post Discharge Activity
[2018-08-07 20:41] VITALS: BP 146/87; PULSE 65
== END 2018-08-07 20:25 | disposition home or self-care (01) ==
LOC: JER 14:15
PROC: 3E033NZ Introduction of Analgesics, Hypnotics, Sedatives into Peripheral Vein, Percutaneous Approach (ICD-10-PCS; principal; 2018-08-07)
DX: R10.9 Unspecified abdominal pain (principal); R10.31 Right lower quadrant pain; R10.32 Left lower quadrant pain; I48.0 Paroxysmal atrial fibrillation; E06.3 Autoimmune thyroiditis; K21.9 Gastro-esophageal reflux disease without esophagitis; Z87.19 Personal history of other diseases of the digestive system; I10 Essential (primary) hypertension; E78.00 Pure hypercholesterolemia, unspecified; Z86.73 Personal history of transient ischemic attack (TIA), and cerebral infarction without residual deficits; Z87.01 Personal history of pneumonia (recurrent); Z88.3 Allergy status to other anti-infective agents
CPT/HCPCS: 36415; 74177-TC; 80053; 81003; 83690; 85025; 87086; 96374; 99282-25; J0131